=== PATIENT | male | born 1995 | race Caucasian/White ===

== ENCOUNTER 2017-04-11 04:30 | Emergency (ER) | payer BC ==
[~2017-04-11] VITALS: Ht 177.8 cm; Wt 100.2 kg
[~2017-04-11 04:30] MED LIST: METH4TAB PO; SULF1TAB35 PO
[2017-04-11] MEDS ORDERED: KETOROLAC 60 MG/2 ML VIAL IM STA (05:09)
--- NOTE | 2017-04-11 05:09 | ED EENT ---
History of Present Illness General Chief Complaint: Ear Problems Stated Complaint: LEFT EAR PAIN Nursing Triage Note: PT TO ED 6 W/ S.O. FOR C/O EAR PAIN ONSET X3 DAYS, WORSE THIS AM. DENIES INJURY. NO OTHER C/O VOICED Source: patient, spouse Exam Limitations: no limitations History of Present Illness Time seen by provider: 05:07 Initial Comments Patient's had 2-3 days of progressively worsening left ear pain without discharge. He states he stuck a Q-tip in there yesterday but cannot get any wax or discharge. He's had a history of otitis media multiple times with tubes as a child latest tubes was when he was pre[age]. He says this morning though the pain was so severe it woke him from sleep. He denies any fevers or chills. He denies nausea. Allergies and Home Medications Allergies Coded Allergies: No Known Drug Allergies (Unverified , 05/08/14) Review of Systems Constitutional: No chills, No diaphoresis, No fever, No malaise Eyes: Denies Blindness, Denies Blurred Vision Ears: Pain, Denies Tinnitus, Denies Bloody Discharge, Denies Clear Discharge, Denies Purulent Discharge Nose: denies epistaxis, denies pain Mouth: denies loose teeth, denies pain, denies swelling Throat: denies neck stiffness, denies hoarse, denies painful swallowing Respiratory: No cough, No short of breath Gastrointestinal: No nausea, No vomiting Skin: No pruritus, No rash Past [id number]-Cylqqe-Clylmo Hx Patient Social History Alcohol Use: Denies Use Recreational Drug Use: No Smoking Status: Never a Smoker Recent Foreign Travel: No Contact w/Someone Who Travel: No Recent Infectious Disease Expo: No Recent Hopitalizations: No Surgeries HX Surgeries: Yes Surgeries: Ear Surgery Respiratory Hx Respiratory Disorders: No Cardiovascular Hx Cardiac Disorders: No Neurological Hx Neurological Disorders: No Reproductive System Hx Reproductive Disorders: No Sexually Transmitted Disease: No Genitourinary Hx Genitourinary Disorders: No Gastrointestinal Hx Gastrointestinal Disorders: No Musculoskeletal Hx Musculoskeletal Disorders: No Endocrine Hx Endocrine Disorders: No HEENT HX ENT Disorders: No Cancer Hx Cancer: No Psychosocial Hx Psychiatric Problems: No Integumentary HX Skin/Integumentary Disorder: No Blood Transfusions Hx Blood Disorders: No Physical Exam Vital Signs Vital Sign - Last 12Hours 04/11/17 04:40 Temp 98.6 Pulse 88 Resp 20 B/P (MAP) 150/83 Pulse Ox 98 O2 Delivery Room Air General Appearance: WD/WN, no apparent distress Eyes: bilateral eye EOMI, bilateral eye PERRL, bilateral eye normal inspection Ears: right ear TM normal, right ear canal normal, left ear TM dull, left ear erythema, left ear swelling, left ear tenderness, bilateral ear auricle normal Nose: normal inspection, No discharge, No sinus tenderness Mouth/Throat: normal mouth inspection, pharynx normal, No dental tenderness Neck: non-tender, normal inspection Cardiovascular: normal peripheral pulses, regular rate, rhythm Neurologic/Psychiatric: alert, oriented x 3 Skin: normal color, warm/dry Progress/Results/Core Measures Results/Orders Vital Signs/I&O Vital Sign - Last 12Hours 04/11/17 04:40 Temp 98.6 Pulse 88 Resp 20 B/P (MAP) 150/83 Pulse Ox 98 O2 Delivery Room Air Blood Pressure Mean: 105 Departure Impression Impression: Primary Impression: Otitis externa Qualified Codes: H60.392 - Other infective otitis externa, left ear Disposition: 01 HOME, SELF-CARE Condition: Stable Departure-Patient Inst. Decision time for Depature: 05:12 Referrals: [facility] (PCP/Family) Primary Care Physician Patient Instructions: Ear Infections (Otitis Media) (DC) Add. Discharge Instructions: You have an external ear infection. It is unknown whether or not you have an underlying abscess so we will cover you with ear drops to be placed 2 drops 3 times daily and oral Bactrim to be taken twice daily with food.You should take probiotics twice daily while on antibiotics or you can take reach yogurt twice daily. Take the antibiotics to completion. If you're not noticing improvement to some extent in 3-4 days you should return to your primary care physician and consider a follow-up with ear nose throat or modification of the therapy. If you 're having worsening nausea vomiting or fevers you should return to the ER or your primary care physician which ever is more appropriate. If you're having pain you should apply a heat pack directly over the ear and you can also take 1000 mg Tylenol every 8 hours or 800 mg of ibuprofen every 8 hours as needed. All discharge instructions reviewed with patient and/or family. Voiced understanding. Scripts Sulfamethoxazole/Trimethoprim (Bactrim Ds Tablet) 1 Each Tablet 1 EACH PO BID for 14 Days, #27 TAB 0 Refills Prov: PADMA GUAJARDO 04/11/17 Ciprofloxacin/Hydrocortisone (Cipro Hc Otic Suspension) 1 Ea Susp 2 DROPS OT BID for 14 Days, #1 EACH 0 Refills Prov: PADMA GUAJARDO 04/11/17 Copy Copies To 1: SAMMIE QUIÑONES TITUS J Apr 11, 2017 05:09
[2017-04-11] MEDS ORDERED: TRIM/SULFAMETH 160/800 (SEPTRA DS) TAB PO ONE (05:15)
[2017-04-11] MEDS ORDERED: SULF1TAB35 PO (05:16)
[2017-04-11] MEDS ORDERED: NF-CIPROHC OT (05:16)
[2017-04-11 05:30] VITALS: BP 0/0
== END 2017-04-11 05:30 | disposition home or self-care (01) ==
LOC: EDUNIT# 04:30 → ER 04:35
DX: H60.92 Unspecified otitis externa, left ear (principal); Z86.69 Personal history of other diseases of the nervous system and sense organs
CPT/HCPCS: 96372; 99284